=== PATIENT | female | born 2000 | race Caucasian/White ===

== ENCOUNTER 2021-09-25 16:11 | Outpatient (CLI) | payer OTHER | END 2021-09-25 16:12 | disposition critical access hospital (66) | LOC: EMS 16:11 | DX: R06.09 Other forms of dyspnea (principal); R05.9 Cough, unspecified; R51.9 Headache, unspecified; R50.9 Fever, unspecified; M25.50 Pain in unspecified joint; J02.9 Acute pharyngitis, unspecified | CPT/HCPCS: A0425; A0427 ==

== ENCOUNTER 2021-09-25 16:31 | Emergency (ER) | payer OTHER ==
[2021-09-25] MEDS: IBUPROFEN 600 MG TABLET PO STA (17:01)
--- NOTE | 2021-09-25 17:15 | ED Physician Documentation ---
History of Present Illness - Stated complaint Stated Complaint: FEVER - Chief complaint Chief Complaint: General - Additonal information Additional information: 21-year-old female presents emergency department for evaluation of myalgias, fev er cough and congestion. Symptoms began yesterday. She [place] with similar though she is uncertain if they have tested positive for COVID. She is doubly vaccinated but not boosted. No history of heart or lung disease. Non-smoker. No diabetes or immune compromise. She began getting sicker at work thus she presents to the ER. Review of Systems Constitutional: reports: Fever, Chills, Myalgias, Fatigue Eyes: reports: Loss of vision Throat: reports: Reviewed and negative Cardiac: reports: Reviewed and negative Respiratory: reports: Cough. denies: Dyspnea, Hemoptysis, Wheezing GI: reports: Reviewed and negative : reports: Reviewed and negative Skin: reports: Reviewed and negative Musculoskeletal: reports: Reviewed and negative PD PAST MEDICAL HISTORY - Allergies Allergies/Adverse Reactions: Allergies Allergy/AdvReac Type Severity Reaction Status Date / Time No Known Drug Allergies Allergy Verified 09/25/21 16:37 PD ED PE NORMAL - General General: Alert and oriented X 3, No acute distress - HEENT HEENT: Atraumatic, Moist mucous membranes - Neck Neck: Supple, no meningeal sign, No adenopathy, No JVD - Cardiac Cardiac: RRR, No murmur - Respiratory Respiratory: No respiratory distress, Clear bilaterally - Abdomen Abdomen: Normal bowel sounds, Soft, Non tender - Back Back: No CVA TTP, No spinal TTP - Derm Derm: Normal color, Warm and dry - Extremities Extremities: No deformity, No tenderness to palpate, Normal ROM s pain - Neuro Neuro: Alert and oriented X 3, mussel opener 2-12 intact Eye Opening: Spontaneous Motor: Obeys Commands Verbal: Oriented GCS Score: 15 Results - Vitals Vitals: Vital Signs - 24 hr 09/25/21 16:35 Temperature 38.4 C H Heart Rate 132 H Respiratory 20 Rate Blood Pressure 122/62 O2 Saturation 100 Oxygen O2 Source Room air - Labs Labs: Laboratory Tests 09/25/21 17:33 Urine Color YELLOW Urine Clarity HAZY Urine pH 6.0 Ur Specific [place] 1.025 Urine Protein NEGATIVE Urine Glucose (UA) NEGATIVE Urine Ketones 40 H Urine Occult Blood NEGATIVE Urine Nitrite NEGATIVE Urine Bilirubin NEGATIVE Urine Urobilinogen 0.2 (NORMAL) Ur Leukocyte Esterase NEGATIVE Urine RBC 0-5 Urine WBC 0-3 Ur Squamous Epith Cells MANY Squamous H Urine Bacteria Moderate H Ur Microscopic Review INDICATED Urine Culture Comments NOT INDICATED Urine HCG, Qual NEGATIVE - Rads (name of study) cxr Radiology: Final report received (No acute cardiopulmonary process) PD MEDICAL DECISION MAKING - ED course Complexity details: reviewed results, re-evaluated patient, considered differe william, d/w patient ED course: 21-year-old female presents emergency department for evaluation of 24 hours cough cold congestion and fever. She is doubly vaccinated though not boosted for COVID-19. She has had some recent sick contact. On presentation she was tachycardic in the 120s sinus. Normotensive. She presented with a fever of 38.4. However though she met sepsis screening criteria, given her history of likely COVID exposure this is more consistent with a viral URI thus screening labs and advanced imaging was deferred. She was given 600 mg of Motrin with marked improvement in her tachycardia and myalgias. Liter of fluid was also administered. Chest x-ray is without acute focal findings. A COVID swab is pending but patient feels markedly better and w ould like to be discharged home. I will follow-up the COVID results with her later this evening. Urine shows no signs of infection and she is not . Emergent return precautions otherwise discussed. Departure - Departure Disposition: 01 Home, Self Care Clinical Impression: Viral respiratory illness, COVID-19 virus infection Condition: Stable Record reviewed to determine appropriate education?: Yes Instructions: ED Viral Syndrome Ch Comments: Loc you are seen today in the emergency department for fevers, myalgias, chills and cough. Your COVID-19 test is positive. Your chest x-ray is normal. Your urine shows no signs of infection and you are not . In general the recommendation for the fluids to stay well-hydrated, take Tylenol or ibuprofen for body aches and discomfort. You may not want to eat it is just important that you drink and stay hydrated. If at any point you develop suddenly severe abdominal pain, have uncontrolled vomiting, black or bloody stools or difficulty breathing then please return immediately to the ER. You must maintain quarantine for at least 5 days.
[2021-09-25] MEDS: SODIUM CHLORIDE 0.9% 1,000 ML IV STA (17:36)
[2021-09-25 17:44] LABS: BILIRUBIN,URINE NEGATIVE (NEGATIVE); GLUCOSE, URINE (UA) NEGATIVE (NEGATIVE); KETONES,URINE (UA) 40 mg/dL (NEGATIVE); LEUKOCYTE ESTERASE, URINE NEGATIVE (NEGATIVE); NITRITE,URINE NEGATIVE (NEGATIVE); OCCULT BLOOD,URINE NEGATIVE (NEGATIVE); PROTEIN,URINE NEGATIVE (NEGATIVE); UROBILINOGEN,URINE 0.2 (NORMAL) E.U./dL (NORMAL)
[2021-09-25 17:45] LABS: CLARITY,URINE HAZY (CLEAR); HCG UR QUAL NEGATIVE
--- NOTE | 2021-09-25 17:48 | XRAY Report ---
PROCEDURE: Chest 1 View X-Ray INDICATIONS: cough, fever TECHNIQUE: One view of the chest was acquired. COMPARISON: None FINDINGS: Surgical changes and devices: None. Lungs and pleura: No pleural effusions or pneumothorax. Lungs are clear. Mediastinum: Mediastinal contours appear normal. Heart size is normal. Bones and chest wall: No suspicious bony lesions. Overlying soft tissues appear unremarkable. IMPRESSION: No acute cardiopulmonary findings Reviewed by: Kadeem Sun MD on 09/25/2021 4:47 PM [facility]DT Approved by: Kadeem Sun MD on 09/25/2021 4:47 PM AKDT Station ID: [id number]
[2021-09-25 17:54] LABS: BACTERIA,URINE Moderate /HPF (None Seen); RBC,URINE 0-5 /HPF (0-5); SQUAMOUS EPITHELIAL CELL,UR MANY Squamous (<= Few); WBC,URINE 0-3 /HPF (0-5)
[2021-09-25 18:09] VITALS: BP 106/66
== END 2021-09-25 18:13 | disposition home or self-care (01) ==
LOC: ED 16:31
DX: U07.1 COVID-19 (principal); J06.9 Acute upper respiratory infection, unspecified
CPT/HCPCS: 71045; 81001; 81025; 87635; 99282; 99284; A9270; 81003; 87086

== ENCOUNTER 2023-05-02 13:09 | Emergency (ER) | payer OTHER ==
[2023-05-02 13:42] VITALS: BP 131/83; O2SAT 99
[2023-05-02] MEDS ORDERED: cephALEXin 250 MG CAPSULE PO STA (15:38)
--- NOTE | 2023-05-02 15:41 | ED Physician Documentation ---
PD HPI FEMALE - Stated complaint Stated Complaint: - Chief complaint Chief Complaint: Wound - History obtained from History obtained from: Patient - Additional information Additional information: Patient is a 23-year-old female, G1, P0 presenting for evaluation of an swelling in the right labial area that she has noticed for the past 2 or 3 days. She states that yesterday it started to drain. She does report still some tenderness to the area. She has not yet established OB care but does have a referral that she is waiting on from the [facility]. She does report some nausea with her but denies any abdominal pain or bleeding.She reports having had prior abscesses in the past requiring drainage. Review of Systems Constitutional: denies: Fever Cardiac: denies: Chest pain / pressure Respiratory: denies: Dyspnea GI: denies: Abdominal Pain : denies: Dysuria PD PAST MEDICAL HISTORY - Past Medical History Past Medical History: No - Past Surgical History Past Surgical History: Yes - Present Medications Home Medications: Ambulatory Orders Medication Instructions Recorded Confirmed Ondansetron Odt [Zofran] 4 mg TL Q6H PRN #10 tablet 05/02/23 cephALEXin [Keflex] 500 mg PO Q6H #28 cap 05/02/23 - Allergies Allergies/Adverse Reactions: Allergies Allergy/AdvReac Type Severity Reaction Status Date / Time No Known Drug Allergies Allergy Verified 05/02/23 13:38 - Social History Does the pt smoke?: No Smoking Status: Never smoker Does the pt drink ETOH?: No Does the pt have substance abuse?: No - Immunizations Immunizations are current?: Yes PD ED PE NORMAL - General General: Alert and oriented X 3, No acute distress, Well developed/nourished - HEENT HEENT: Atraumatic - Respiratory Respiratory: No respiratory distress - Abdomen Abdomen: Normal bowel sounds, Soft, Non tender, Non distended - Female Female : Costumed Character present (ANNA Rodrigues), Other (Patient is a 1 cm area of redness and swelling with some tenderness. Appears to been an abscess that has spontaneously drained and opened. There is no further fluctuance) PD ED PE EXPANDED - Female Female visual: 1 - abscess (with small opening and small amount of drainage) Results - Vitals Vitals: Vital Signs - 24 hr 05/02/23 13:33 Temperature 36.5 C Heart Rate 87 Respiratory 15 Rate Blood Pressure 131/83 H O2 Saturation 99 Oxygen O2 Source Room air PD Medical Decision Making - ED course ED course: Patient presenting for evaluation of swelling to area of the outer right labia. Does not appear to be a Bartholin's gland abscess. 1 cm area which has spontaneously opened and drained and I do not see further needs for incision and drainage at this time. Patient is started on oral antibiotics given some overlying redness. Patient and her spouse also inquire about medications to help with ongoing morning sickness. She has not yet established OB care. She has not had vomiting but does report having a lot of nausea all day long. Prescriptions were given for cephalexin as well as Zofran. Patient counseled on need for close follow-up as well as concerning symptoms to return for. Departure - Departure Disposition: 01 Home, Self Care Clinical Impression: Abscess of right genital labia, Vomiting or nausea of Condition: Stable Instructions: ED Infec Skin Cellulitis Prescriptions: cephALEXin [Keflex] 500 mg PO Q6H #28 cap Ondansetron Odt [Zofran] 4 mg TL Q6H PRN #10 tablet PRN Reason: Nausea / Vomiting Comments: You have a small area of infection to the right outer labia. There may have been a small abscess present but this appears to be draining and I do not think it requires any further drainage at this time. I have sent a prescription for an antibiotic to [facility] in [place]. Please take this as directed. You can also use warm compresses to this area to help facilitate any further draining. 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 Forms: PCP List Discharge Date/Time: 05/02/23 15:49
== END 2023-05-02 15:49 | disposition home or self-care (01) ==
LOC: ED 13:09
DX: O23.599 Infection of other part of genital tract in pregnancy, unspecified trimester (principal); O99.891 Other specified diseases and conditions complicating pregnancy; R11.0 Nausea
CPT/HCPCS: 99282; 99283; A9270